=== PATIENT | female | born 1990 | race African-American/Black ===

== ENCOUNTER 2022-02-10 22:15 | Inpatient (IN) | payer MEDICAID ==
[2022-02-10] MEDS ORDERED: Ondansetron 4 MG/2 ML SDV IVPUSH PRN (23:07)
[2022-02-10] MEDS ORDERED: Nalbuphine HCl 10 MG/ 1ML Amp IVPUSH PRN (23:07)
[2022-02-10] MEDS ORDERED: Sodium Chloride 0.9% 10 ML Syringe FLUSH PRN (23:07)
[2022-02-10] MEDS ORDERED: Acetaminophen 325 MG Tab PO PRN (23:07)
[2022-02-10] MEDS ORDERED: Lidocaine 1% 50 ML MDV INJECT ONE (23:07)
[2022-02-10] MEDS ORDERED: Oxytocin/Lactated Ringers 10 UNIT/1,000 ML BAG IV SCH ×2 (23:15)
[2022-02-10] MEDS ORDERED: Lactated Ringers 1,000 ML IV SCH (23:15)
[2022-02-11] MEDS ORDERED: ePHEDrine 50 MG/ML SDV IVPUSH PRN (02:07)
[2022-02-11] MEDS ORDERED: Bupivacaine/fentaNYL/NS 100 ML Bag EPIDUR PRN (02:07)
[2022-02-11] MEDS ORDERED: diphenhydrAMINE 50 MG/ML SDV IVPUSH PRN (02:07)
[2022-02-11] MEDS ORDERED: fentaNYL 100 MCG/2 ML SDV EPIDUR PRN (02:07)
[2022-02-11] MEDS ORDERED: Measles, Mumps & Rubella Vaccine 0.5 ML SDV SUBCUT ONE (05:17)
[2022-02-11] MEDS ORDERED: Magnesium Hydroxide 400 MG/5 ML Susp 30 ML Cup PO PRN (05:17)
[2022-02-11] MEDS ORDERED: Hydrocortisone Acetate 25 MG Supp RECTAL PRN (05:17)
[2022-02-11] MEDS ORDERED: Docusate Sodium 100 MG Cap PO PRN (05:17)
[2022-02-11] MEDS ORDERED: Benzocaine/Menthol 20%-0.5% Spray 78 GM Cannister TOP PRN (05:17)
[2022-02-11] MEDS ORDERED: Witch Hazel Medicated Pads 40/Jar TOP PRN (05:17)
[2022-02-11] MEDS ORDERED: Acetaminophen 325 MG Tab PO PRN (05:17)
[2022-02-11] MEDS ORDERED: Oxytocin/Lactated Ringers 10 UNIT/1,000 ML BAG IV SCH (05:17)
[2022-02-11] MEDS ORDERED: Sodium Chloride 0.9% 10 ML Syringe FLUSH SCH (09:00)
[2022-02-11] MEDS: Prenatal Multivitamin with Calcium/Folic Acid/Iron Tab PO SCH (09:14)
[2022-02-11] MEDS: Ibuprofen 600 MG Tab PO PRN ×2 (09:14→23:28)
[2022-02-12] MEDS: Prenatal Multivitamin with Calcium/Folic Acid/Iron Tab PO SCH (08:09)
[2022-02-12] MEDS: Ibuprofen 600 MG Tab PO PRN (08:10)
== END 2022-02-12 11:45 | disposition home or self-care (01) | DRG 807 ==
LOC: JD.OBCHECK 22:15 → JD.OB 23:14 → OBSVTOIN 02-11 04:02 → JD.MS 02-11 04:03 → JD.OB 02-11 14:08
PROVIDERS: ADMIT Obstetrics & Gynecology; ATTEND Obstetrics & Gynecology
PROC: 10E0XZZ Delivery of Products of Conception, External Approach (ICD-10-PCS; principal; 2022-02-11)
PROC: 10907ZC Drainage of Amniotic Fluid, Therapeutic from Products of Conception, Via Natural or Artificial Opening (ICD-10-PCS; 2022-02-11)
PROC: 0HQ9XZZ Repair Perineum Skin, External Approach (ICD-10-PCS; 2022-02-11)
DX: O69.81X0 Labor and delivery complicated by cord around neck, without compression, not applicable or unspecified (principal); Z37.0 Single live birth; Z3A.40 40 weeks gestation of pregnancy
CPT/HCPCS: 36415; 59025; 59409; 85025; A9270-GY; J2300; J2590; J7120